=== PATIENT | male | born 1995 | race Caucasian/White ===

== ENCOUNTER 2019-08-23 | Emergency (ER) | payer SELFPAY ==
[~2019-08-23] MED LIST: ALBUTEROL90 MCG IN; ALLERGY RELF10 M2 OR; COMBIVENT IN; FLINTSTONE1 OR; LORTAB5 PO
[2019-08-23 02:23] LABS: IMMATURE GRANULOCYTES 0.1 % (0.0-5.0); MEAN CELL VOLUME 88.9 fL CALC (80.0-100.0); MEAN CORPUSCULAR HGB CONC 34.9 g/L CALC (32.0-36.0); RED BLOOD COUNT 5.13 mill/uL (4.70-6.10); RED CELL DISTRI WIDTH 11.6 % (11.5-15.5)
[2019-08-23 02:34] LABS: HEMATOCRIT 45.6 % (39.0-50.0); HEMOGLOBIN 15.9 g/dl (14.0-18.0)
[2019-08-23 02:45] LABS: ALBUMIN 4.2 g/dL (3.2-5.0); ANION GAP 9 (6-22 (CALC)); BUN 6 mg/dL (9-20); BUN/CREATININE RATIO 13 (12-20 (CALC)); CARBON DIOXIDE 29 mmol/l (22-30); CHLORIDE 102 mmol/l (95-108); CREATININE 0.5 mg/dL (0.7-1.3); GFR > 60 ML/MIN (>=60 (CALC)); GFR FOR AFR.AMER. > 60 ML/MIN (>=60 (CALC)); POTASSIUM 4.1 mmol/l (3.5-5.1); SGOT/AST 23 u/l (17-59); SODIUM 136 mmol/l (137-146); TOTAL PROTEIN 6.8 g/dL (6.3-8.2)
[2019-08-23 02:57] LABS: ALKALINE PHOSPHATASE 56 u/l (38-126); BILIRUBIN, TOTAL 0.5 mg/dL (0.0-1.4); MYOGLOBIN 25 ng/mL (0 - 121)
[2019-08-23 02:58] LABS: URINE BILIRUBIN - DIPSTICK NEGATIVE (NEGATIVE); URINE BLOOD DIPSTICK NEGATIVE (NEGATIVE); URINE COLOR YELLOW; URINE GLUCOSE - DIPSTICK NEGATIVE (NEGATIVE); URINE KETONE NEGATIVE (NEGATIVE); URINE LEUK ESTERASE NEGATIVE (NEGATIVE); URINE NITRITE - DIPSTICK NEGATIVE (Negative); URINE PROTEIN - DIPSTICK NEGATIVE (NEG-TRACE); URINE UROBILINOGEN - DIPSTICK 0.2 E.U./dL (0.2)
[2019-08-23 02:59] LABS: BARBITURATES NEGATIVE (NEGATIVE); COCAINE NEGATIVE (NEGATIVE); METHADONE NEGATIVE (NEGATIVE); OXCYCODONE POSITIVE (NEGATIVE); TETRAHYDROCANNABIONOL POSITIVE (NEGATIVE); TRICYLIC ANTIDEPRESSANTS NEGATIVE (NEGATIVE)
== END 2019-08-23 03:37 | disposition home or self-care (01) | DRG 880 ==
PROVIDERS: Emergency Medicine
DX: F41.9 Anxiety disorder, unspecified (principal); F19.10 Other psychoactive substance abuse, uncomplicated

== ENCOUNTER 2022-01-24 10:22 | Emergency (ER) | payer BC ==
[~2022-01-24] VITALS: Ht 157.5 cm; Wt 54.4 kg
== END 2022-01-24 12:07 | disposition home or self-care (01) | DRG 204 ==
LOC: ED 10:22
DX: R07.81 Pleurodynia (principal)